=== PATIENT | female | born 1960 | race Caucasian/White ===

== ENCOUNTER 2018-09-06 06:15 | Inpatient (IN) | payer OTHER ==
[2018-09-04 18:19] VITALS: BMI 35.5
[~2018-09-06] VITALS: Ht 160 cm; Wt 90.0 kg
[2018-09-06] VITALS (24 sets, daily range): BP systolic 97–146; BP diastolic 61–87; PULSE 66–91; RESP 13–22; Ht 160 cm; Wt 90.0 kg
--- NOTE | 2018-09-06 07:17 | PREAC ---
Date/Time of Note Date/Time of Note DATE: 09/06/18 TIME: 07:14 Anesthesia Eval and Record Evaluation Time Pre-Procedure Interview DATE: 09/06/18 TIME: 07:14 Age 58 Sex female NPO: 8 hrs Preoperative diagnosis Left knee osteoarthritis Planned procedure !eft total knee replacement Past Medical History Past Medical History: Includes Cardio: HTN GI: Obesity Surgery & Anesthesia Issues No known issue Meds Anticoagulation: No Beta Adela within 24 hr: No Reason Beta Adela not given: Pt. not on B-Adela Reported Medications Hydrochlorothiazide (Hydrochlorothiazide) 12.5 Mg Capsule, 1 CAP ORAL DAILY 09/06/18 Benazepril Hcl* (Benazepril Hcl*) 20 Mg Tablet, 1 TAB ORAL DAILY 09/06/18 Meds reviewed: Yes Allergies Coded Allergies: No Known Drug Allergies (Verified Allergy, Unknown, 09/06/18) Allergies Reviewed: Yes Labs/Studies Labs Reviewed: Reviewed by anesthesiologist test: N/A Pre-procedure Exam Airway: Adequate mouth opening Mallampati: Mallampati II Teeth: Normal Lung: Normal Heart: Normal ASA Physical Status ASA physical status: 2 Emergency: None Planned Anesthetic General/MAC: ETT, LMA Planned Pain Management Single shot nerve block, Parenteral pain med Pre-operative Attestations Prior to commencing anesthesia and surgery, the patient was re-evaluated, there was verification of: *The patient's identity *The results of appropriate recent lab work and preoperative vital signs *The above evaluation not changing prior to induction *Anesthetic plan, risk benefits, alternative and complications discussed with patient/family; questions answered; patient/family understands, accepts and wishes to proceed. BRENADN CMMAHAN MD Sep 06, 2018 07:17
[2018-09-06] MEDS ORDERED: HYDR12.53 ORAL (07:27)
[2018-09-06] MEDS ORDERED: BENA20TA4 ORAL (07:27)
[2018-09-06] MEDS ORDERED: LACTATED RINGER'S 1,000 ML IV SCH (07:30)
[2018-09-06] MEDS ORDERED: BACITRACIN 50000 UNITS INJ ONE (07:35)
[2018-09-06] MEDS ORDERED: TRANEXAMIC ACID 1GM/100ML(PMX) 100 ML IV STA (07:46)
--- NOTE | 2018-09-06 07:46 | HPN ---
Date/Time of Note Date/Time of Note DATE: 09/06/18 TIME: 07:45 Interval H&P Admission Note Pt. seen H&P reviewed: No system changes KELSEA HOWARD MD Sep 06, 2018 07:46
[2018-09-06] MEDS ORDERED: LIDOCAINE 2% (SDV) 5 ML INJ ONE (07:47)
[2018-09-06] MEDS ORDERED: ONDANSETRON 4 MG INJ ONE (07:47)
[2018-09-06] MEDS ORDERED: CEFAZOLIN 1 GM INJ ONE (07:47)
[2018-09-06] MEDS ORDERED: PROPOFOL 20 ML ONE (07:47)
[2018-09-06] MEDS ORDERED: METOCLOPRAMIDE 10 MG INJ ONE (07:47)
[2018-09-06] MEDS ORDERED: ROPIVACAINE 0.5 % 30 ML VIAL ONE (07:47)
[2018-09-06] MEDS ORDERED: POLYMYXIN/BACITRACIN 1L IRRIG ONE (07:52)
[2018-09-06] MEDS ORDERED: SODIUM CHLORIDE 0.9% IRR ONE ×2 (08:00)
[2018-09-06] MEDS ORDERED: TRANEXAMIC ACID 1000 MG IRR ONE ×2 (08:00)
[2018-09-06] MEDS ORDERED: HYDROmorphONE 1 MG/5 ML IV SYRINGE IV PRN ×3 (09:00)
[2018-09-06] MEDS ORDERED: MEPERIDINE 25 MG INJ IV PRN (09:00)
[2018-09-06] MEDS ORDERED: METOCLOPRAMIDE 10 MG INJ IV PRN (09:00)
[2018-09-06] MEDS ORDERED: MIDAZOLAM 1 MG/ML 2 ML INJ IV PRN (09:00)
[2018-09-06] MEDS ORDERED: EPHEDrine 25 MG/5 ML SYG IV PRN (09:00)
[2018-09-06] MEDS ORDERED: FENTAnyl 50 MCG/ML VIAL IV PRN ×3 (09:00)
[2018-09-06] MEDS ORDERED: DIPHENHYDRAMINE 50 MG INJ IV PRN (09:00)
[2018-09-06] MEDS ORDERED: ONDANSETRON 4 MG INJ IV PRN (09:00)
[2018-09-06] MEDS ORDERED: OXYCODONE/ACETAMINOPHEN (5/325) TAB PO PRN ×2 (09:00)
[2018-09-06] MEDS ORDERED: LABETALOL HCL 20MG INJ IV PRN (09:00)
[2018-09-06] MEDS ORDERED: hydrALAzine 20 MG INJ IV PRN (09:00)
--- NOTE | 2018-09-06 10:57 | OPR ---
Date/Time of Note Date/Time of Note DATE: 09/06/18 TIME: 10:52 Operative Report Preoperative Diagnosis Left knee osteoarthritis Postoperative Diagnosis Same Operation/Procedure Performed Left total knee replacement Surgeon see signature line Clearing Distribution Clerk Nhung Ramos Anesthesia Type: general, other (Adductor canal block) Anesthesiologist: BRENDAN MCMAHAN MD Estimated Blood Loss: 100 - 150 ml's Transfusion none Specimen Bone Grafts/Implants Elsie triathlon implants Femur size 3 Tibia size 2 Patella asymmetric 32 Complications none Procedure Description INDICATIONS FOR PROCEDURE: [This] is a 58-year-old female who has had progressive pain in the left knee. The patient has failed nonoperative treatment and now presents for elective total knee replacement. Risks and benefits were discussed with the patient, risks including but not limited to infection, bleeding, blood clots, dislocation, fracture, knee stiffness, nerve damage, blood vessel damage, along with other medical, anesthetic and surgical complications were discussed. Informed consent was obtained. DESCRIPTION OF PROCEDURE: The patient's correct extremity was identified in the preoperative area. The patient was brought back to the operating room where a spinal anesthetic was placed followed by an adductor canal block. The correct extremity was then prepped and draped in the standard sterile manner. A timeout was performed. Esmarch was used to exsanguinate. The thigh tourniquet was inflated to 250 mmHg. I then made a standard midline incision for approaching the knee. I went through skin and subcutaneous tissue, made a medial parapatellar arthrotomy. Then, flexed the knee and introduced an intramedullary alignment guide. Distal femoral cut was made followed by chamfer cuts. Upon putting the cutting guide for chamfer cuts the size of the femur was between 3 and 4. The 4 was too big but the 3 was notching. I moved the guide to anteriorize the cut. Despite this there was a minimal amount of notching. I then introduced the extramedullary alignment guide which was used to make the tibial cut. Flexion and extension gaps were checked. There were symmetric. The knee went from full extension to full flexion. I then turned my attention to the patella. I used an [id number] mill type cutting guide, cut the patellar to appropriate thickness and sized the patella. I then trialed the patella. The patella tracked well without any external pressure. I then made the peg holes for the femoral trial. Punched the tibia. I took out all trial components. Thoroughly irrigated the bony surfaces, dried them with a lap sponge. I then proceeded to cement the tibia, femur and patellar components. A trial insert was used till the cement hardened. After the cement hardened, I thoroughly irrigted the knee. The knee was well balanced. I then let down the tourniquet, obtained adequate hemostasis. I thoroughly irrigated the knee. I then impacted the appropriate all poly insert until it locked into place and I had full range of motion with just a jog of opening with varus and valgus stress. I then turned my attention to closure. I closed the medial parapatellar arthrotomy with interrupted #1 Vicryl, subcutaneous tissue was closed with 2-0 Vicryl, skin with abbey. Dry sterile dressings were applied. The patient had good perfusion to her foot with a 2+ dorsalis pedis pulse. She was then extubated and transported to recovery in stable condition. KELSEA HOWARD MD Sep 06, 2018 10:57
[2018-09-06] MEDS ORDERED: DOCUSATE SODIUM 100 MG CAP PO ONE (11:00)
[2018-09-06] MEDS ORDERED: MAGNESIUM HYDROXIDE 30ML CUP PO PRN (11:00)
[2018-09-06] MEDS ORDERED: NACL 0.9% 3 ML SYG IV SCH (11:00)
[2018-09-06] MEDS ORDERED: SENNA/DOCUSATE NA (8.6MG/50MG) TAB PO PRN (11:00)
[2018-09-06] MEDS ORDERED: BISACODYL 10 MG SUPP PR PRN (11:00)
[2018-09-06] MEDS ORDERED: NA PHOSPHATE/BIPHOS 133 ML ENEMA PR PRN (11:00)
[2018-09-06] MEDS ORDERED: NALOXONE (0.4 MG/ML) INJ IV PRN (11:00)
[2018-09-06] MEDS: SOD CHLORIDE 0.9% 1,000 ML IV SCH ×3 (11:24→23:04)
[2018-09-06] MEDS: CEFAZOLIN 2 GM/50 ML (PMX) 50 ML IVPB SCH ×2 (11:25→19:25)
[2018-09-06] MEDS: oxyCODONE 5 MG TAB PO PRN (14:25)
[2018-09-06] MEDS: HYDROmorphONE 1 MG/ML SYG IV PRN ×3 (15:56→22:18)
--- NOTE | 2018-09-06 20:20 | HP ---
DATE OF ADMISSION: 09/06/2018 CHIEF COMPLAINT: Left knee pain. HISTORY OF PRESENT ILLNESS: The patient is a 58-year-old female with history of osteoarthritis left knee and hypertension. The patient has progressive pain in the left knee and failed conservative chris atment and was offered elective total knee replacement by Dr. Howard. The patient was admitted to [facility] for elective left total knee replacement. The patient postoperatively was started on p.o. Roxico done; however, she stated that pain is not controlled and therefore, the patient was started on IV Di laudid on p.r.n. basis. The patient denied any chest pain or shortness of breath. No reported nause a, vomiting. No reported headache. No dizziness. No reported numbness, tingling in any extremity. REVIEW OF SYSTEMS: Other than postoperative pain, rest of review of systems was unremarkable. ALLERGIES: NONE. SOCIAL HISTORY: No smoking or alcohol. FAMILY HISTORY: Noncontributory. MEDICATIONS PRIOR TO ADMISSION: 1. Benazepril. 2. Hydrochlorothiazide. PHYSICAL EXAMINATION: GENERAL: Revealed the patient to be awake, alert, fairly oriented. VITAL SIGNS: Temperature 97.9, pulse 80, respiration 18, blood pressure 146/75, O2 saturation 100% o n room air. HEENT: Atraumatic, normocephalic. Conjunctivae are normal. Oropharynx is clear. NECK: No mass, no JVD, no carotid bruit. CHEST: Fairly clear. CARDIOVASCULAR: S1, S2 normal. No murmur. ABDOMEN: Soft, nondistended, nontender. EXTREMITIES: Pedal pulses palpable. NEUROLOGIC: The patient is awake, alert and follows simple commands. LABORATORY DATA: Reviewed. Followup CBC and BMP are pending for tomorrow. IMPRESSION: 1. Osteoarthritis, left knee, status post left total knee arthroplasty. 2. Hypertension. PLAN: The patient will be admitted to medical floor. The patient will be started on full liquid t, which will be advanced as tolerated. Benazepril and hydrochlorothiazide will be resumed. I will reduce the dose of benazepril for now due to use of IV Dilaudid and potential drop in blood pressure. For DVT prophylaxis, the patient has been started on Lovenox. For GI prophylaxis, the patient is a lready on Protonix. Further recommendation will depend on patient's hospital course. Plan of care w as discussed with patient's family. Dictated By: IZABEL POOLE/LINN Conf#: [id number] DID#: [id number] CC: KELSEA HOWARD MD;*EndCC*
[2018-09-06] MEDS: BENAZEPRIL 10 MG TAB PO SCH (22:19)
[2018-09-07] VITALS: BP 129/69; PULSE 103
[2018-09-07] MEDS: HYDROmorphONE 1 MG/ML SYG IV PRN ×2 (01:52→06:18)
[2018-09-07] MEDS: CEFAZOLIN 2 GM/50 ML (PMX) 50 ML IVPB SCH (04:19)
[2018-09-07] MEDS: oxyCODONE 5 MG TAB PO PRN ×4 (05:23→20:37)
[2018-09-07 07:29] VITALS: BP 137/75; PULSE 102; RESP 18
[2018-09-07] MEDS: DOCUSATE SODIUM 100 MG CAP PO SCH ×2 (08:48→20:36)
[2018-09-07] MEDS: HYDROCHLOROTHIAZIDE 12.5 MG CAP PO SCH (08:48)
[2018-09-07] MEDS: ENOXAPARIN 30 MG/0.3 ML SYG SC SCH ×2 (08:52→20:39)
[2018-09-07] MEDS ORDERED: BENAZEPRIL 10 MG TAB PO SCH (09:00)
--- NOTE | 2018-09-07 10:09 | PN ---
Date/Time of Note Date/Time of Note DATE: 09/07/18 TIME: 10:09 Assessment/Plan VTE Prophylaxis Risk score (from Ns)>0 risk: 10 SCD applied (from Nsg): Yes Lines/Catheters IV Catheter Type (from Nrsg): Peripheral IV Urinary Cath still in place: Yes Assessment/Plan Assessment/Plan 1. Osteoarthritis, left knee, status post left total knee arthroplasty. 2. Hypertension. Result Diagram: 09/07/1842209/07/18422 Results 24hrs Laboratory Tests Test 09/07/18 04:23 09/07/18 07:06 White Blood Count 11.1 H Red Blood Count 4.02 L Hemoglobin 11.7 L Hematocrit 34.6 L Mean Corpuscular Volume 86.1 Mean Corpuscular Hemoglobin 29.1 Mean Corpuscular Hemoglobin Concent 33.8 Red Cell Distribution Width 12.2 Platelet Count 276 Mean Platelet Volume 8.9 Immature Granulocytes % 0.500 H Neutrophils % 78.0 H Lymphocytes % 13.8 L Monocytes % 7.5 Eosinophils % 0.0 Basophils % 0.2 Nucleated Red Blood Cells % 0.0 Immature Granulocytes # 0.050 H Neutrophils # 8.6 H Lymphocytes # 1.5 Monocytes # 0.8 Eosinophils # 0.0 Basophils # 0.0 Nucleated Red Blood Cells # 0.0 Sodium Level 136 Potassium Level 3.5 Chloride Level 96 L Carbon Dioxide Level 32 H Anion Gap 8 Blood Urea Nitrogen 9 Creatinine 0.61 Est Glomerular Filtrat Rate mL/min > 60 Glucose Level 151 Calcium Level 8.4 Lab Scanned Report REFERENCE LAB Exam/Review of Systems Exam Vitals Vital Signs Date Temp Pulse Resp B/P (MAP) Pulse Ox O2 O2 Flow FiO2 Time Delivery Rate 09/07/18 99.8 102 18 137/75 99 Room Air 07:29 (95) 09/06/18 8.0 11:44 Intake and Output 09/06/18 09/06/18 09/07/18 1515:00 23:00 07:00 IntakeIntake Total 2200 ml 1050 ml 650 ml OutputOutput Total 360 ml 550 ml BalanceBalance 1840 ml 500 ml 650 ml Results Results 24hrs Laboratory Tests Test 09/07/18 04:23 09/07/18 07:06 White Blood Count 11.1 H Red Blood Count 4.02 L Hemoglobin 11.7 L Hematocrit 34.6 L Mean Corpuscular Volume 86.1 Mean Corpuscular Hemoglobin 29.1 Mean Corpuscular Hemoglobin Concent 33.8 Red Cell Distribution Width 12.2 Platelet Count 276 Mean Platelet Volume 8.9 Immature Granulocytes % 0.500 H Neutrophils % 78.0 H Lymphocytes % 13.8 L Monocytes % 7.5 Eosinophils % 0.0 Basophils % 0.2 Nucleated Red Blood Cells % 0.0 Immature Granulocytes # 0.050 H Neutrophils # 8.6 H Lymphocytes # 1.5 Monocytes # 0.8 Eosinophils # 0.0 Basophils # 0.0 Nucleated Red Blood Cells # 0.0 Sodium Level 136 Potassium Level 3.5 Chloride Level 96 L Carbon Dioxide Level 32 H Anion Gap 8 Blood Urea Nitrogen 9 Creatinine 0.61 Est Glomerular Filtrat Rate mL/min > 60 Glucose Level 151 Calcium Level 8.4 Lab Scanned Report REFERENCE LAB Medications Medication Current Medications Sodium Chloride 1,000 ml @ 80 mls/hr [id number] IV Last administered on 09/06/18at 21:08; Admin Dose 80 MLS/HR; Start 09/06/18 at 10:34 IV Flush (NS 3 ml) 3 ml PER PROTOCOL IV ; Start 09/06/18 at 11:00 Oxycodone HCl (Roxicodone) 15 mg Q4H PRN PO .PAIN Last administered on 09/07/18at 05:23; Admin Dose 15 MG; Start 09/06/18 at 11:00 Oxycodone HCl (Roxicodone) 10 mg Q4H PRN PO .PAIN Last administered on 09/06at 14:25; Admin Dose 10 MG; Start 09/06/18 at 11:00 Oxycodone HCl (Roxicodone) 5 mg Q4H PRN PO .PAIN; Start 09/06/18 at 11:00 Pantoprazole (Protonix Tab) 40 mg DAILY@06 PO ; Start 09/08/18 at 06:00 Docusate Sodium (Colace) 200 mg BID PO Last administered on 09/07/18at 08:48; Admin Dose 200 MG; Start 09/07/18 at 09:00; Stop 09/10/18 at 08:59 Simethicone (Mylicon) 80 mg TID PRN PO .GAS; Start 09/06/18 at 11:00 Senna/Docusate Sodium (Senokot-S) 2 tab BID PRN PO .CONSTIPATION; Start 09/06/18 at 11:00 Magnesium Hydroxide (Milk Of Mag) 30 ml HS PRN PO .CONSTIPATION; Start 09/06/18 at 11:00 Bisacodyl (Dulcolax Supp) 10 mg DAILY PRN [place] .CONSTIPATION; Start 09/06/18 at 11:00 Sodium Biphosphate/ Sodium Phosphate (Fleet Enema) 133 ml DAILY PRN [place] .CONSTIPATION; Start 09/06/18 at 11:00 Naloxone HCl (Narcan) 0.2 mg Q2M PRN IV .RESP RATE; Start 09/06/18 at 11:00 Enoxaparin Sodium (Lovenox) 30 mg Q12H SC Last administered on 09/07/18at 08:52; Admin Dose 30 MG; Start 09/07/18 at 08:00 Hydromorphone HCl (Dilaudid) 1 mg Q4H PRN IV SEVERE PAIN LEVEL 7-10 Last administered on 09/07/18at 06:18; Admin Dose 1 MG; Start 09/06/18 at 15:30 Hydrochlorothiazide (Hydrochlorothiazide) 12.5 mg DAILY PO Last administered on 09/07/18at 08:48; Admin Dose 12.5 MG; Start 09/07/18 at 09:00 Benazepril HCl (Lotensin) 10 mg HS PO Last administered on 09/06/18at 22:19; Admin Dose 10 MG; Start 09/06/18 at 21:30 ASIYA RAMSEY Sep 07, 2018 10:09
[2018-09-07] MEDS: SOD CHLORIDE 0.9% 1,000 ML IV SCH (11:34)
[2018-09-07 14:02] VITALS: BP 126/70; PULSE 99; RESP 18
[2018-09-07 19:30] VITALS: BP 152/75; PULSE 119; RESP 20
[2018-09-07] MEDS: BENAZEPRIL 10 MG TAB PO SCH (20:36)
[2018-09-08] MEDS: SOD CHLORIDE 0.9% 1,000 ML IV SCH ×2 (00:04→11:04)
[2018-09-08 02:15] VITALS: BP 146/68; PULSE 118; RESP 20
[2018-09-08] MEDS: PANTOPRAZOLE (EC) 40 MG TAB PO SCH (06:11)
[2018-09-08] MEDS: oxyCODONE 5 MG TAB PO PRN ×4 (06:44→22:21)
--- NOTE | 2018-09-08 08:15 | PN ---
Date/Time of Note Date/Time of Note DATE: 09/08/18 TIME: 08:15 Assessment/Plan VTE Prophylaxis Risk score (from Ns)>0 risk: 10 SCD applied (from Nsg): Yes Lines/Catheters IV Catheter Type (from Nrs): Saline Lock Urinary Cath still in place: No Assessment/Plan Assessment/Plan 1. Osteoarthritis, left knee, status post left total knee arthroplasty. 2. Hypertension. Result Diagram: 09/08/18 0427 09/07/18 0423 Results 24hrs Laboratory Tests Test 09/08/18 04:27 White Blood Count 9.8 Red Blood Count 3.68 L Hemoglobin 10.9 L Hematocrit 31.8 L Mean Corpuscular Volume 86.4 Mean Corpuscular Hemoglobin 29.6 Mean Corpuscular Hemoglobin Concent 34.3 Red Cell Distribution Width 12.5 Platelet Count 262 Mean Platelet Volume 9.1 Immature Granulocytes % 0.400 Neutrophils % 73.3 Lymphocytes % 17.5 Monocytes % 8.7 Eosinophils % 0.0 Basophils % 0.1 Nucleated Red Blood Cells % 0.0 Immature Granulocytes # 0.040 H Neutrophils # 7.2 Lymphocytes # 1.7 Monocytes # 0.9 Eosinophils # 0.0 Basophils # 0.0 Nucleated Red Blood Cells # 0.0 Exam/Review of Systems Exam Vitals Vital Signs Date Temp Pulse Resp B/P (MAP) Pulse Ox O2 O2 Flow FiO2 Time Delivery Rate 09/08/18 99.5 118 20 146/68 91 02:15 (94) 09/07/18 Room Air 14:02 09/06/18 8.0 11:44 Intake and Output 09/07/18 09/07/18 09/08/18 1515:00 23:00 07:00 IntakeIntake Total 1320 ml 2080 ml BalanceBalance 1320 ml 2080 ml Results Results 24hrs Laboratory Tests Test 09/08/18 04:27 White Blood Count 9.8 Red Blood Count 3.68 L Hemoglobin 10.9 L Hematocrit 31.8 L Mean Corpuscular Volume 86.4 Mean Corpuscular Hemoglobin 29.6 Mean Corpuscular Hemoglobin Concent 34.3 Red Cell Distribution Width 12.5 Platelet Count 262 Mean Platelet Volume 9.1 Immature Granulocytes % 0.400 Neutrophils % 73.3 Lymphocytes % 17.5 Monocytes % 8.7 Eosinophils % 0.0 Basophils % 0.1 Nucleated Red Blood Cells % 0.0 Immature Granulocytes # 0.040 H Neutrophils # 7.2 Lymphocytes # 1.7 Monocytes # 0.9 Eosinophils # 0.0 Basophils # 0.0 Nucleated Red Blood Cells # 0.0 Medications Medication Current Medications Sodium Chloride 1,000 ml @ 80 mls/hr [id number] IV Last administered on 09/06/18at 21:08; Admin Dose 80 MLS/HR; Start 09/06/18 at 10:34 IV Flush (NS 3 ml) 3 ml PER PROTOCOL IV ; Start 09/06/18 at 11:00 Oxycodone HCl (Roxicodone) 15 mg Q4H PRN PO .PAIN Last administered on 09/08/18at 06:44; Admin Dose 15 MG; Start 09/06/18 at 11:00 Oxycodone HCl (Roxicodone) 10 mg Q4H PRN PO .PAIN Last administered on 09/07/18a t 15:19; Admin Dose 10 MG; Start 09/06/18 at 11:00 Oxycodone HCl (Roxicodone) 5 mg Q4H PRN PO .PAIN; Start 09/06/18 at 11:00 Pantoprazole (Protonix Tab) 40 mg DAILY@06 PO Last administered on 09/08/18at 06:11; Admin Dose 40 MG; Start 09/08/18 at 06:00 Docusate Sodium (Colace) 200 mg BID PO Last administered on 09/07/18at 20:36; Admin Dose 200 MG; Start 09/07/18 at 09:00; Stop 09/10/18 at 08:59 Simethicone (Mylicon) 80 mg TID PRN PO .GAS; Start 09/06/18 at 11:00 Senna/Docusate Sodium (Senokot-S) 2 tab BID PRN PO .CONSTIPATION; Start 09/06/18 at 11:00 Magnesium Hydroxide (Milk Of Mag) 30 ml HS PRN PO .CONSTIPATION; Start 09/06/18 at 11:00 Bisacodyl (Dulcolax Supp) 10 mg DAILY PRN [place] .CONSTIPATION; Start 09/06/18 at 11:00 Sodium Biphosphate/ Sodium Phosphate (Fleet Enema) 133 ml DAILY PRN [place] .CONSTIPATION; Start 09/06/18 at 11:00 Naloxone HCl (Narcan) 0.2 mg Q2M PRN IV .RESP RATE; Start 09/06/18 at 11:00 Enoxaparin Sodium (Lovenox) 30 mg Q12H SC Last administered on 09/07/18 20:39; Admin Dose 30 MG; Start 09/07/18 at 08:00 Hydromorphone HCl (Dilaudid) 1 mg Q4H PRN IV SEVERE PAIN LEVEL 7-10 Last administered on 09/07/18 06:18; Admin Dose 1 MG; Start 09/06/18 at 15:30 Hydrochlorothiazide (Hydrochlorothiazide) 12.5 mg DAILY PO Last administered on 09/07/18 08:48; Admin Dose 12.5 MG; Start 09/07/18 at 09:00 Benazepril HCl (Lotensin) 10 mg HS PO Last administered on 09/07/18 20:36; Admin Dose 10 MG; Start 09/06/18 at 21:30 ASIYA RAMSEY Sep 08, 2018 08:15
[2018-09-08 08:20] VITALS: BP 128/66; PULSE 108; RESP 20
[2018-09-08] MEDS: DOCUSATE SODIUM 100 MG CAP PO SCH ×2 (08:53→22:02)
[2018-09-08] MEDS: HYDROCHLOROTHIAZIDE 12.5 MG CAP PO SCH (08:53)
[2018-09-08] MEDS: ENOXAPARIN 30 MG/0.3 ML SYG SC SCH ×2 (08:59→22:04)
--- NOTE | 2018-09-08 15:29 | PN ---
Date/Time of Note Date/Time of Note DATE: 09/08/18 TIME: 15:27 Assessment/Plan Lines/Catheters IV Catheter Type (from Nrsg): Saline Lock Fields in Place (from Nrsg): No Assessment/Plan Assessment/Plan POD 2 Doing well Pain well controlled Low grade temps, recommend incentive spirometer Lovenox, SCD's for DVT prophylaxis Ok to discharge on Xarelto Discharge planning. Home tomorrow. Subjective 24 Hr Interval Summary No complaints. Comfortable in bed. Has ambulated with PT. Exam/Review of Systems Vital Signs Vitals Vital Signs Date Temp Pulse Resp B/P (MAP) Pulse Ox O2 O2 Flow FiO2 Time Delivery Rate 09/08/18 98.4 108 20 128/66 95 Room Air 08:20 (86) 09/06/18 8.0 11:44 Intake and Output 09/07/18 09/07/18 09/08/18 1515:00 23:00 07:00 IntakeIntake Total 1320 ml 2080 ml BalanceBalance 1320 ml 2080 ml Exam Free Text/Dictation Left LE Inc c/d/i No erythema Calf soft and non tender Intact motor and sensory function in foot Foot warm Results Result Diagram: 09/08/18 0427 09/07/18 0423 KELSEA HOWARD MD Sep 08, 2018 15:29
[2018-09-08 15:38] VITALS: BP 122/61; PULSE 111; RESP 20
[2018-09-08 19:58] VITALS: BP 134/66; PULSE 115; RESP 18
[2018-09-08] MEDS: BENAZEPRIL 10 MG TAB PO SCH (22:02)
[2018-09-09 00:35] VITALS: BP 130/61; PULSE 106; RESP 18
[2018-09-09] MEDS: SOD CHLORIDE 0.9% 1,000 ML IV SCH (01:04)
[2018-09-09] MEDS: PANTOPRAZOLE (EC) 40 MG TAB PO SCH (04:58)
[2018-09-09] MEDS: oxyCODONE 5 MG TAB PO PRN ×4 (04:59→17:36)
[2018-09-09 07:27] VITALS: BP 124/71; PULSE 103; RESP 18
[2018-09-09] MEDS: DOCUSATE SODIUM 100 MG CAP PO SCH (08:31)
[2018-09-09] MEDS: HYDROCHLOROTHIAZIDE 12.5 MG CAP PO SCH (08:32)
[2018-09-09] MEDS: ENOXAPARIN 30 MG/0.3 ML SYG SC SCH (08:33)
[2018-09-09] MEDS ORDERED: DOCU-144 PO (13:34)
[2018-09-09] MEDS ORDERED: RIVA10TA PO (13:34)
[2018-09-09 16:25] VITALS: BP 118/68; PULSE 120; RESP 18
--- NOTE | 2018-09-10 00:47 | DS ---
Date/Time of Note Date/Time of Note DATE: 09/10/18 TIME: 00:43 Discharge Summary Admission/Discharge Info Admit Date/Time Sep 06, 2018 at 06:15 Discharge Date/Time Sep 09, 2018 at 18:35 Patient Condition: Stable Hx of Present Illness The patient is a 58-year-old female with history of osteoarthritis left knee and hypertension. The patient has progressive pain in the left knee and failed conservative treatment and was offered elective total knee replacement by Dr. Brooke. The patient was admitted today for elective left total knee replacement. The patient postoperatively was started on p.o. Roxicodone; however, she stated that pain is not controlled and therefore, the patient was started on IV Dilaudid on p.r.n. basis. The patient denied any chest pain or shortness of breath. No reported nausea, vomiting. No reported headache. No dizziness. No reported numbness, tingling in any extremity. Hospital Course Patient discharged home with home health PT services - Osteoarthritis, left knee, status post left total knee arthroplasty. Continue Roxicodone for pain, continue physical therapy. Continue Xarelto for 12 more days. Patient discharged with prescription for [place], Xarelto and Colace. - Hypertension. Continue benazepril and hydrochlorothiazide. Plan of care discussed with Dr. Rojas. Home Meds Active Scripts Rivaroxaban* (Xarelto*) 10 Mg Tablet, 10 MG PO DAILY for 12 Days, TAB Prov:PEDRO DAWKINS 09/09/18 Docusate Sodium* (Colace*) 100 Mg Capsule, 200 MG PO BID for 30 Days, CAP Prov:PEDRO DAWKINS 09/09/18 Reported Medications Hydrochlorothiazide (Hydrochlorothiazide) 12.5 Mg Capsule, 1 CAP ORAL DAILY 09/06/18 Benazepril Hcl* (Benazepril Hcl*) 20 Mg Tablet, 1 TAB ORAL DAILY 09/06/18 Follow-up Plan DC home with home health PT services, follow-up with Dr. Brooke in 2 weeks Primary Care Provider Not On Staff Doctor Time spent on discharge: > 30 minutes Pending Labs Laboratory Tests Test 09/09/18 04:41 09/09/18 14:02 White Blood Count 12.5 10^3/ul (4.8-10.8) 12.1 10^3/ul (4.8-10.8) Red Blood Count 4.03 10^6/ul (4.20-5.40) 3.92 10^6/ul (4.20-5.40) Hemoglobin 11.6 g/dl (12.0-16.0) 11.4 g/dl (12.0-16.0) Hematocrit 34.5 % (37.0-47.0) 33.9 % (37.0-47.0) Mean Corpuscular Volume 85.6 fl (82.0-101.0) 86.5 fl (82.0-101.0) Mean Corpuscular 28.8 pg (29.0-33.0) 29.1 pg (29.0-33.0) Hemoglobin Mean Corpuscular 33.6 g/dl (32.0-37.0) 33.6 g/dl (32.0-37.0) Hemoglobin Concent Red Cell Distribution 12.6 % (11.5-14.5) 12.5 % (11.5-14.5) Width Platelet Count 324 10^3/UL (140-415) 330 10^3/UL (140-415) Mean Platelet Volume 9.1 fl (7.4-10.4) 9.2 fl (7.4-10.4) Immature Granulocytes % 0.300 % (0.001-0.429) 0.300 % (0.001-0.429) Neutrophils % 59.1 % (39.0-77.0) 71.1 % (39.0-77.0) Lymphocytes % 32.8 % (15.0-51.0) 22.5 % (15.0-51.0) Monocytes % 7.4 % (0.0-11.0) 5.8 % (0.0-11.0) Eosinophils % 0.1 % (0.0-7.0) 0.1 % (0.0-7.0) Basophils % 0.3 % (0.0-2.0) 0.2 % (0.0-2.0) Nucleated Red Blood Cells 0.0 /100WBC (0.0-0.0) 0.0 /100WBC (0.0-0.0) % Immature Granulocytes # 0.040 10^3/ul (0.0-0.031) 0.040 10^3/ul (0.0-0.031) Neutrophils # 7.4 10^3/ul (1.6-7.5) 8.6 10^3/ul (1.6-7.5) Lymphocytes # 4.1 10^3/ul (0.8-2.9) 2.7 10^3/ul (0.8-2.9) Monocytes # 0.9 10^3/ul (0.3-0.9) 0.7 10^3/ul (0.3-0.9) Eosinophils # 0.0 10^3/ul (0.0-0.5) 0.0 10^3/ul (0.0-0.5) Basophils # 0.0 10^3/ul (0.0-0.1) 0.0 10^3/ul (0.0-0.1) Nucleated Red Blood Cells 0.0 10^3/ul (0.0-0.0) 0.0 10^3/ul (0.0-0.0) PEDRO CUMMINGS Sep 10, 2018 00:47
== END 2018-09-09 18:35 | disposition home health service (06) | DRG 470 ==
LOC: REC 06:15 → MS1 12:23
PROVIDERS: ADMIT Specialist; ATTEND Specialist
PROC: 0SRD0J9 Replacement of Left Knee Joint with Synthetic Substitute, Cemented, Open Approach (ICD-10-PCS; principal; 2018-09-06 08:00)
DX: M17.12 Unilateral primary osteoarthritis, left knee (principal); I10 Essential (primary) hypertension
CPT/HCPCS: 73560; 80048; 85025; 86850; 86900; 86901; 87086; 88304; 88311; 97110; 97116; 97161; 97530; C1713; C1776; J0690; J1170; J1200; J1650; J2175; J2405; J2765; J2795; J3010; J7030